=== PATIENT | female | born 1940 | race Two or more races ===

== ENCOUNTER 2020-12-03 09:34 | Day surgery (SDC) | payer MEDICARE, OTHER ==
[~2020-12-03] VITALS: Ht 147.3 cm; Wt 52.2 kg
[2020-12-03] MEDS ORDERED: LIDOCAINE 2% 100 MG/5 ML UJET TP ONE ×2 (11:35→12:05)
[2020-12-03] MEDS ORDERED: fentaNYL citrate 0.05 MG/ML VIAL ONE (11:35)
[2020-12-03] MEDS ORDERED: fentaNYL citrate 0.05 MG/ML VIAL IVP ONE (12:05)
[2020-12-03] MEDS ORDERED: SIMETHICONE 40 MG/0.6 ML PO ONE (12:05)
== END 2020-12-03 12:57 | disposition home or self-care (01) ==
LOC: MDS 09:34 → MMU 09:41 → MDS 12:57
PROVIDERS: ATTEND Internal Medicine Gastroenterology
DX: K62.5 Hemorrhage of anus and rectum (principal); K64.8 Other hemorrhoids; K57.30 Diverticulosis of large intestine without perforation or abscess without bleeding; K59.00 Constipation, unspecified; Z96.651 Presence of right artificial knee joint; Z79.82 Long term (current) use of aspirin; Z95.5 Presence of coronary angioplasty implant and graft; Z79.899 Other long term (current) drug therapy
CPT/HCPCS: 45398; J3010